=== PATIENT | female | born 1955 | race Caucasian/White ===

== ENCOUNTER 2022-10-12 14:19 | Emergency (ER) | payer MEDICAID, OTHER ==
[2022-10-12] MEDS: Ketorolac 60 MG/2 ML SDV IM ONE (15:10)
[2022-10-12] MEDS: Ketorolac 60 MG/2 ML SDV ONE (15:13)
== END 2022-10-12 16:45 | disposition home or self-care (01) ==
LOC: LB.ED 14:19
DX: S20.211A Contusion of right front wall of thorax, initial encounter (principal); S20.212A Contusion of left front wall of thorax, initial encounter; Z88.2 Allergy status to sulfonamides; W18.30XA Fall on same level, unspecified, initial encounter
CPT/HCPCS: 71111; 93005; 96372; 99283; J1885

== ENCOUNTER 2022-11-04 13:27 | Emergency (ER) | payer MEDICAID, OTHER ==
[2022-11-04 14:26] LABS: BASOPHILS ABSOLUTE AUTO 0.09 K/uL (0.02-0.10); BASOPHILS PERCENT AUTO 1.1 % (0.0-0.5); EOSINOPHILS ABSOLUTE AUTO 0.04 K/uL (0.04-0.40); EOSINOPHILS PERCENT AUTO 0.5 % (1.0-5.0); HEMATOCRIT 38.2 % (37.0-47.0); HEMOGLOBIN 12.8 g/dL (11.5-16.5); LYMPHOCYTES ABSOLUTE AUTO 2.19 K/uL (1.50-4.00); LYMPHOCYTES PERCENT AUTO 26.7 % (20.0-40.0); MEAN CORPUSCULAR HEMOGLOBIN 32.7 pg (27.0-32.0); MEAN CORPUSCULAR HGB CONC 33.5 g/dL (31.0-35.0); MEAN CORPUSCULAR VOLUME 97 fL (76-96); MONOCYTES ABSOLUTE AUTO 0.62 K/uL (0.20-0.80); MONOCYTES PERCENT AUTO 7.6 % (3.0-10.0); NEUTROPHILS ABSOLUTE AUTO 5.25 K/uL (2.00-7.50); NEUTROPHILS PERCENT AUTO 64.1 % (45.0-70.0); PLATELET COUNT,PLT 359 K/uL (150-500); RED BLOOD CELL COUNT 3.92 M/uL (3.80-5.80); RED CELL DISTRIBUTION WIDTH 12.8 % (11.0-16.0); WHITE BLOOD CELL COUNT,WBC 8.2 K/uL (4.0-11.0)
[2022-11-04 14:46] LABS: A/G RATIO 1.2 (0.8-2.0); ANION GAP 15.2 mmol/L (5.0-15.0); BILIRUBIN TOTAL 0.5 mg/dL (0.0-1.0); BUN/CREATININE RATIO 11.6 (6-25); CALCIUM 9.2 mg/dL (8.5-10.1); CARBON DIOXIDE,CO2 29.9 mmol/L (21.0-32.0); CREATININE 0.69 mg/dL (0.55-1.02); EST CRCL DRUG DOSING (CG) 73.14 mL/min; POTASSIUM,K 4.1 mmol/L (3.5-5.1); PROTEIN TOTAL,TP 7.4 g/dL (6.4-8.2)
[2022-11-04 14:54] LABS: APPEARANCE,URINE CLEAR (CLEAR); BILIRUBIN,URINE NEGATIVE (NEGATIVE); COLOR,URINE YELLOW; GLUCOSE,URINE NEGATIVE (NEGATIVE); KETONES,URINE NEGATIVE (NEGATIVE); LEUKOCYTE ESTERASE,URINE NEGATIVE (NEGATIVE); NITRITE,URINE NEGATIVE (NEGATIVE); OCCULT BLOOD,URINE TRACE-LYSED (NEGATIVE); PROTEIN,URINE NEGATIVE (NEGATIVE); UROBILINOGEN,URINE 0.2 E.U./dL (0.2-1.0)
[2022-11-04 15:01] LABS: RBC,URINE 0-5 /HPF; SQUAMOUS EPITHELIAL CELLS,UR OCCASIONAL /HPF; WBC,URINE NOT SEEN /HPF
== END 2022-11-04 16:09 | disposition home or self-care (01) ==
LOC: LB.ED 13:27
DX: S22.41XA Multiple fractures of ribs, right side, initial encounter for closed fracture (principal); I10 Essential (primary) hypertension; Z88.1 Allergy status to other antibiotic agents; W28.XXXA Contact with powered lawn mower, initial encounter
CPT/HCPCS: 36415; 71250; 80053; 81001; 83690; 85025; 85379; 99284

== ENCOUNTER 2023-06-10 08:00 | Emergency (ER) | payer MEDICARE, OTHER ==
[2023-06-10] MEDS: Ketorolac 30 MG/ML SDV IM ONE (09:16)
[2023-06-10] MEDS: Ketorolac 30 MG/ML SDV ONE (09:20)
== END 2023-06-10 10:20 | disposition home or self-care (01) ==
LOC: LB.ED 08:00
DX: S52.502A Unspecified fracture of the lower end of left radius, initial encounter for closed fracture (principal); W00.0XXA Fall on same level due to ice and snow, initial encounter
CPT/HCPCS: 29125; 73110-LT; 96372; 99283; 99283-25; J1885